=== PATIENT | male | born 1970 | race African-American/Black ===

== ENCOUNTER 2021-05-04 09:35 | Emergency (ER) | payer OTHER ==
[~2021-05-04] VITALS: Ht 182.9 cm; Wt 87.1 kg
--- NOTE | ~2021-05-04 | EMS ---
[facility] [address] [place] [address] EMS Patient Care Report Name: ESTER WATTERS Room #: PRE M.R.#: [id number] Admission: Attend Phys: Discharge: Date of : 68 Report #: [id number] THIS REPORT FOR: //name// Report Transmitted: 05/04/2021 10:04 EMS Care Summary [place], [place]/[facility] Incident [id number] @ 05/04/2021 09:07 Incident Location [address] [address] Patient ESTER WATTERS Male, 50 Years 1970 Patient Address [address] [place] [address] Patient History Hypertension (HTN), Patient Allergies No known allergies, Patient Medications Unknown, Chief Complaint Chest pain Disposition Transported No Lights/[place] Reason Chest Pain (Non-Traumatic) Transported To [facility] Narrative Arrived on scene to be greeted by our patient walking down the hallway of the hotel. Patient stated he had been having chest pain for "a couple of days." [facility] [address] [place] [address] EMS Patient Care Report Name: ESTER WATTERS Room #: [facility] [place].#: [id number] Admission: Attend Phys: Discharge: Date of : 68 Report #: [id number] Patient described it as a sharp throbbing pain in the spot noted under the assessment tab. Patient stated he also had an abnormal sensation radiating down his right arm. Patient denied any soa, n/v, or diarrhea. Patient denied any radiation of the pain down his left arm or into his left neck/jaw. Patient stated the pain was constant and did not increase or decrease with movement, inspiration, or palpation. Patient stated he did not bring his HTN medication with him on his trip and had not taken it in the previous few days. Upon meeting the patient walking down the hallway we assisted him to the ambulance. Vital signs, 3 lead and 12 lead EKGs obtained. 12 lead EKG showed no acute signs of an active ACS event. Patient was transported and transferred to receiving facility without change in patient condition. Initial Vitals @09:22P: 72,VA Suspected: false @09:20P: 73,R: 16,BP: 172/99,Pain: 4/10,GCS: 15,SpO2: 96,Revised Trauma: 12, @09:26P: 77,R: 16,BP: 158/89,Pain: 4/10,GCS: 15,CO: 7,SpO2: 96,Revised Trauma: 12, Assessments @09:17MENTAL:Place Oriented,Person Oriented,Time Oriented,Event Oriented,SKIN:HEENT:Head/Face: No Abnormalities,Neck/Airway: No Abnormalities,LUNG SOUNDS:Left Upper: No Abnormalities,Right Upper: No Abnormalities,Left Lower: No Abnormalities,Right Lower: No Abnormalities,ABDOMEN:Left Upper: No Abnormalities,Right Upper: No Abnormalities,Left Lower: No Abnormalities,Right Lower: No Abnormalities,PELVIS//GI:No Abnormalities,EXTREMITIES:Left Arm: No Abnormalities,Right Arm: No Abnormalities,Left Leg: No Abnormalities,Right Leg: No Abnormalities,PULSE:NEURO:No Abnormalities, Impression Chest Pain / Discomfort Procedures @09:2212-Lead ECGResponse: UnchangedSucceeded@09:17ALS AssessmentResponse: UnchangedSucceeded@09:203-Lead ECGResponse: UnchangedSucceeded@09:23Aspirin - 324 Milligrams (mg) - OralResponse: Unchanged Timeline 09:05,Call Received 09:05,Dispatch Notified 09:07,Dispatched 09:09,En Route 09:14,On Scene 09:17,At Patient 09:17,ALS Assessment,Response: UnchangedSucceeded, 09:20,3-Lead ECG,Response: UnchangedSucceeded, [address] [place] [address] EMS Patient Care Report Name: ESTER WATTERS Room #: [facility] M.R.#: [id number] Admission: Attend Phys: Discharge: Date of : 68 Report #: [id number] 09:20,BP: 172/99 M,PULSE: 73,RR: 16 R,SPO2: 96 Ox,ETCO2: ,BG: ,PAIN: 4,GCS: 15, 09:22,12-Lead ECG,Response: UnchangedSucceeded, 09:22,BP: / M,PULSE: 72,RR: R,SPO2: Ox,ETCO2: ,BG: ,PAIN: ,GCS: , 09:23,Aspirin - 324 Milligrams (mg) - Oral,Response: Unchanged 09:25,Depart Scene 09:26,BP: 158/89 M,PULSE: 77,RR: 16 R,SPO2: 96 Ox,ETCO2: ,BG: ,PAIN: 4,GCS: 15, 09:31,At Destination 09:49,Call Closed Disclaimer v1.1 Copyright 2020 [employer] This EMS Care Summary contains data elements from the applicable legal record (which may be displayed differently). It is designed to provide pertinent information for the following purposes: continuity of care, clinical quality, and state data reporting. The complete legal record is available to ED staff and administrators of the receiving hospital in [employer] Patient Tracker. All data is provided "as is."
[2021-05-04 10:53] LABS: BASOPHILS 0.4 % (0.0-2.0); EOSINOPHILS 3.9 % (0.0-3.0); HEMATOCRIT 40.6 % (42.0-52.0); HEMOGLOBIN 13.7 gm/dL (14.0-18.0); LYMPHOCYTES 21.9 % (24.0-44.0); MCHC 33.8 g/dL (28.0-37.0); MCV 91.7 fL (80.0-100.0); MONOCYTES 9.5 % (1.0-8.0); PLATELET COUNT 243 thou/uL (150-400); POLYS 64.3 % (36.0-66.0); RBC 4.43 mil/uL (4.50-6.00); RDW 14.1 % (10.5-14.5); WBC 6.2 thou/uL (4.0-11.0)
[2021-05-04 10:55] LABS: CALCIUM 8.5 mg/dL (8.5-10.1); CREATININE 1.1 mg/dL (0.7-1.3); POTASSIUM 3.9 mmol/L (3.5-5.1)
[2021-05-04 12:47] VITALS: BP 137/92
--- NOTE | 2021-05-05 16:14 | EKG ---
[address] [address] ELECTROCARDIOGRAM REPORT Name: ESTER WATTERS 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
== END 2021-05-04 12:50 | disposition home or self-care (01) ==
LOC: ER 09:35
PROVIDERS: Emergency Medicine
DX: R07.89 Other chest pain (principal); I10 Essential (primary) hypertension; F17.210 Nicotine dependence, cigarettes, uncomplicated; Z98.890 Other specified postprocedural states